=== PATIENT | male | born 1955 | race Caucasian/White ===

== ENCOUNTER 2018-12-03 08:13 | Inpatient (IN) | payer MEDICARE ==
[~2018-12-03] VITALS: Ht 190.5 cm; Wt 110.0 kg
[~2018-12-03 08:13] MED LIST: ESOM40CA PO; LACT10SO32 PO; MULT-342 PO; OXYC10TA47 PO; RIFA550T PO; TAMS0.4C32 PO
[2018-12-03] MEDS ORDERED: CefTRIAXone 2gm/D5W 50ml 50 ML IV ONE (08:20)
[2018-12-03] MEDS ORDERED: normal saline 1000ml 1,000 ML IV ONE (08:20)
[2018-12-03] MEDS ORDERED: piperacillin/tazo 3.375gm/50ml 50 ML IV ONE (08:20)
[2018-12-03] MEDS ORDERED: morphine 4 MG/ML inj SYRINge IV ONE (08:30)
[2018-12-03] MEDS ORDERED: ondansetron 4mg rapidly disintigrating tab PO ONE (08:30)
[2018-12-03 09:01] LABS: BASOPHILS % (AUTO) 0.4 % (0-1); EOSINOPHILS # (AUTO) 0.4 X10'3 (0-0.9); HEMATOCRIT 38.5 % (42.0-52.0); HEMOGLOBIN 12.7 g/dl (14.0-17.9); LYMPHOCYTES # (AUTO) 0.9 X10'3 (1.1-4.8); LYMPHOCYTES % (AUTO) 14.6 % (21-51); MEAN CORPUSCULAR HEMOGLOBIN 26.9 PG (27.0-31.0); MEAN CORPUSCULAR HGB CONC 32.9 g/dL (33.0-36.5); MEAN CORPUSCULAR VOLUME 81.7 FL (78-98); MEAN PLATELET VOLUME 7.9 FL (7.4-10.4); MONOCYTES # (AUTO) 0.3 X10'3 (0-0.9); MONOCYTES % (AUTO) 5.7 % (2-12); NEUTROPHILS # (AUTO) 4.5 X10'3 (1.8-7.7); NEUTROPHILS % (AUTO) 73.3 % (42-75); PLATELET COUNT 230 X10'3 (140-440); RED BLOOD COUNT 4.71 X10'6 (4.70-6.10); RED CELL DISTRIBUTION WIDTH 17.6 % (11.5-14.5); WHITE BLOOD COUNT 6.1 X10'3 (4.5-11.0)
[2018-12-03 09:12] LABS: INR 1.1 INR; PARTIAL THROMBOPLASTIN TIME 33 SECONDS (22-32)
[2018-12-03 09:22] LABS: ALANINE AMINOTRANSFERASE 35 U/L (12-78); ALBUMIN/GLOBULIN RATIO 0.7 (1.1-1.5); ALKALINE PHOSPHATASE 96 IU/L (46-116); ANION GAP 7 (8-16); ASPARTATE AMINO TRANSFERASE 29 U/L (10-37); BILIRUBIN,TOTAL 0.3 MG/DL (0.1-1.0); BLOOD UREA NITROGEN 13 MG/DL (7-18); BUN/CREATININE RATIO 9.6 (5.4-32.0); CALCIUM 8.4 MG/DL (8.5-10.1); CHLORIDE 106 MMOL/L (99-107); CREATININE 1.36 MG/DL (0.60-1.10); GLUCOSE 146 MG/DL (70-104); MAGNESIUM 1.8 MG/DL (1.5-2.4); POTASSIUM 4.7 MMOL/L (3.5-5.1); SODIUM 138 MMOL/L (135-145); TOTAL CARBON DIOXIDE 25.1 MMOL/L (24-32); TOTAL PROTEIN 7.3 G/DL (6.4-8.2); eGFR 53 ML/MIN
[2018-12-03] MEDS ORDERED: HYDROmorphone inj. 0.5 MG/0.5 ML DISP.SYRIN IV ONE (09:45)
[2018-12-03] MEDS ORDERED: DOXYCYCLINE 100MG CAPSULE PO STA (10:06)
[2018-12-03] MEDS ORDERED: DOXY100C43 PO (10:09)
[2018-12-03] MEDS ORDERED: CEPH250T PO (10:09)
[2018-12-03] MEDS ORDERED: ondansetron/PF 4mg/2ml inj IV PRN (10:25)
[2018-12-03] MEDS ORDERED: acetaminophen 325mg tablet PO PRN (10:25)
[2018-12-03] MEDS ORDERED: mag hydrox/Alum hydrox/simeth 30ml oral suspension PO PRN (10:25)
[2018-12-03] MEDS ORDERED: HYDROcodone/acetaminophen 5mg/325mg tablet PO PRN (10:25)
[2018-12-03] MEDS ORDERED: magnesium hydroxide 30ml (MOM) UD suspension PO PRN (10:25)
[2018-12-03] MEDS: normal saline 1000ml 1,000 ML IV SCH ×2 (10:49→14:55)
[2018-12-03] MEDS: HYDROmorphone inj. 0.5 MG/0.5 ML DISP.SYRIN IV PRN ×4 (11:16→23:05)
[2018-12-03 11:24] LABS: CLARITY,URINE CLEAR (Clear); COLOR,URINE YELLOW (Yellow); GLUCOSE, URINE NEGATIVE (Neg); KETONES,URINE NEGATIVE (Neg); LEUKOCYTE ESTERASE ,URINE NEGATIVE (Neg); NITRITES, URINE NEGATIVE (Neg); OCCULT BLOOD,URINE NEGATIVE (Neg); PH,URINE 5.5 (4.8-8.0); PROTEIN,URINE NEGATIVE (Neg)
[2018-12-03 11:32] LABS: UA COLLECTION TYPE STRAIGHT CATH
[2018-12-03] MEDS ORDERED: LORA0.5T PO (11:48)
[2018-12-03] MEDS ORDERED: OXYC30TA85 PO (11:48)
[2018-12-03] MEDS ORDERED: FLUO15OI2 TP (11:52)
[2018-12-03] MEDS ORDERED: ZALE10CA PO (11:52)
[2018-12-03] MEDS ORDERED: FURO-150 PO (11:53)
[2018-12-03] MEDS ORDERED: HYDR-3686 PO (11:54)
--- NOTE | 2018-12-03 13:26 | NUR ---
I have received report from CAMILO Garza and had the opportunity to ask questions and assume patient care.
[2018-12-03 13:45] VITALS: BP 141/75
[2018-12-03] MEDS ORDERED: HYDROmorphone inj. 0.5 MG/0.5 ML DISP.SYRIN IV PRN (14:15)
[2018-12-03] MEDS: mineral oil/petrolatum, white cream 113gm jar TP SCH (14:54)
[2018-12-03] MEDS ORDERED: OXYCODONE HCL PO SCH (16:00)
[2018-12-03] MEDS: hydrOXYzine 25 MG tablet PO SCH ×2 (17:04→23:17)
[2018-12-03] MEDS: OXYcodone (OXYCONTIN) Ext Release 15 MG TAB.SR.12H PO SCH ×2 (17:05→23:17)
--- NOTE | 2018-12-03 18:21 | NUR ---
Problems reprioritized. Patient report given, questions answered & plan of care reviewed with CAMILO Alves.
[2018-12-03 18:40] VITALS: BP 120/76
[2018-12-03] MEDS ORDERED: FLUOCINOLONE ACETONIDE TP SCH (20:00)
[2018-12-03] MEDS: fluocinonide 0.05% 15gm ointment TP SCH (20:00)
[2018-12-03] MEDS: lactulose 20gm/30ml cup PO SCH (20:00)
[2018-12-03] MEDS: heparin, porcine 5000 units/ml vial SQ SCH (20:00)
[2018-12-03] MEDS: LORazepam 0.5 MG tablet PO SCH (20:51)
[2018-12-03] MEDS: zolpidem 5mg tablet PO SCH (20:52)
[2018-12-03] MEDS: tamsulosin 0.4mg capsule PO SCH (20:52)
[2018-12-03] MEDS: metroNIDAZOLE 500mg tablet PO SCH (20:52)
[2018-12-03] MEDS ORDERED: ZALEPLON PO SCH (21:00)
[2018-12-04] VITALS: BP 105/55
[2018-12-04 05:38] LABS: BASOPHILS % (AUTO) 0.5 % (0-1); EOSINOPHILS # (AUTO) 0.3 X10'3 (0-0.9); EOSINOPHILS % (AUTO) 7.5 % (0-6); HEMATOCRIT 31.7 % (42.0-52.0); HEMOGLOBIN 10.7 g/dl (14.0-17.9); LYMPHOCYTES # (AUTO) 0.8 X10'3 (1.1-4.8); LYMPHOCYTES % (AUTO) 21.6 % (21-51); MEAN CORPUSCULAR HEMOGLOBIN 27.5 PG (27.0-31.0); MEAN CORPUSCULAR HGB CONC 33.9 g/dL (33.0-36.5); MEAN CORPUSCULAR VOLUME 81.2 FL (78-98); MEAN PLATELET VOLUME 7.8 FL (7.4-10.4); MONOCYTES # (AUTO) 0.2 X10'3 (0-0.9); NEUTROPHILS # (AUTO) 2.4 X10'3 (1.8-7.7); NEUTROPHILS % (AUTO) 64.4 % (42-75); PLATELET COUNT 191 X10'3 (140-440); RED BLOOD COUNT 3.91 X10'6 (4.70-6.10); RED CELL DISTRIBUTION WIDTH 17.7 % (11.5-14.5); WHITE BLOOD COUNT 3.8 X10'3 (4.5-11.0)
[2018-12-04 05:41] LABS: ALBUMIN 2.5 G/DL (3.4-5.0); ANION GAP 7 (8-16); BLOOD UREA NITROGEN 11 MG/DL (7-18); BUN/CREATININE RATIO 9.3 (5.4-32.0); CALCIUM 7.8 MG/DL (8.5-10.1); CHLORIDE 107 MMOL/L (99-107); CREATININE 1.18 MG/DL (0.60-1.10); GLUCOSE 114 MG/DL (70-104); POTASSIUM 4.4 MMOL/L (3.5-5.1); SODIUM 138 MMOL/L (135-145); TOTAL CARBON DIOXIDE 24.3 MMOL/L (24-32); eGFR 63 ML/MIN
--- NOTE | 2018-12-04 06:36 | NUR ---
Problems reprioritized. Patient report given, questions answered & plan of care reviewed with MELVIN. Addendum: 12/04/18 at 0636 by Dameon Galan RN Amended: Links added.
[2018-12-04 07:00] VITALS: BP 93/48
--- NOTE | 2018-12-04 07:00 | NUR ---
Patient in room [facility]. I have received report from Long and had the opportunity to ask questions and assume patient care. Addendum: 12/04/18 at 1539 by Rocio Nichols RN Amended: Links added.
[2018-12-04] MEDS: HYDROmorphone inj. 0.5 MG/0.5 ML DISP.SYRIN IV PRN ×7 (07:15→22:07)
[2018-12-04] MEDS ORDERED: non-formulary drug (Multivitamins (Multi-Day Vitamin) 1 EACH) PO SCH (08:00)
[2018-12-04] MEDS: lactulose 20gm/30ml cup PO SCH (08:00)
[2018-12-04] MEDS: furosemide 40mg tablet PO SCH (08:00)
[2018-12-04] MEDS: hydrOXYzine 25 MG tablet PO SCH ×2 (08:29→14:33)
[2018-12-04] MEDS: LORazepam 0.5 MG tablet PO SCH ×3 (08:29→20:26)
[2018-12-04] MEDS: metroNIDAZOLE 500mg tablet PO SCH ×3 (08:29→20:26)
[2018-12-04] MEDS: multivitamins, therapeutics tablet PO SCH (08:29)
[2018-12-04] MEDS: OXYcodone (OXYCONTIN) Ext Release 15 MG TAB.SR.12H PO SCH ×2 (08:29→14:34)
[2018-12-04] MEDS: heparin, porcine 5000 units/ml vial SQ SCH ×2 (08:34→20:35)
[2018-12-04] MEDS: normal saline 1000ml 1,000 ML IV SCH ×3 (10:21→22:08)
[2018-12-04] MEDS: mineral oil/petrolatum, white cream 113gm jar TP SCH (10:29)
[2018-12-04] MEDS: fluocinonide 0.05% 15gm ointment TP SCH ×2 (10:29→20:45)
[2018-12-04 11:00] VITALS: BP 127/73
[2018-12-04] MEDS ORDERED: furosemide 40mg/4ml inj IV ONE (13:40)
--- NOTE | 2018-12-04 18:21 | NUR ---
Problems reprioritized. Patient report given, questions answered & plan of care reviewed with Joyce.
--- NOTE | 2018-12-04 18:22 | NUR ---
Problems reprioritized. Patient report given, questions answered & plan of care reviewed with Zahra. Addendum: 12/04/18 at 1822 by Rocio Nichols RN Amended: Links added.
--- NOTE | 2018-12-04 18:30 | NUR ---
Patient in room [facility]. I have received report from CAMILO Chan and had the opportunity to ask questions and assume patient care. Addendum: 12/04/18 at 2337 by Beto Beck RN Amended: Links added.
[2018-12-04 19:30] VITALS: BP 109/72
[2018-12-04] MEDS: lactobacillus rhamnosus 10,000 MMU CELLS/CAPSULE PO SCH (20:25)
[2018-12-04] MEDS: tamsulosin 0.4mg capsule PO SCH (20:25)
[2018-12-04] MEDS: zolpidem 5mg tablet PO SCH (20:26)
[2018-12-04] MEDS ORDERED: VANCOMYCIN LEVEL IV ONE (22:30)
[2018-12-05] VITALS: BP 108/72
[2018-12-05] MEDS: OXYcodone (OXYCONTIN) Ext Release 15 MG TAB.SR.12H PO SCH ×3 (00:02→16:16)
[2018-12-05] MEDS: hydrOXYzine 25 MG tablet PO SCH ×3 (00:02→16:16)
[2018-12-05] MEDS: HYDROmorphone inj. 0.5 MG/0.5 ML DISP.SYRIN IV PRN ×12 (00:02→22:00)
[2018-12-05 05:38] LABS: BASOPHILS % (AUTO) 0.4 % (0-1); EOSINOPHILS # (AUTO) 0.3 X10'3 (0-0.9); EOSINOPHILS % (AUTO) 6.4 % (0-6); HEMATOCRIT 34.6 % (42.0-52.0); HEMOGLOBIN 11.5 g/dl (14.0-17.9); LYMPHOCYTES # (AUTO) 0.9 X10'3 (1.1-4.8); LYMPHOCYTES % (AUTO) 18.1 % (21-51); MEAN CORPUSCULAR HGB CONC 33.4 g/dL (33.0-36.5); MEAN PLATELET VOLUME 7.6 FL (7.4-10.4); MONOCYTES # (AUTO) 0.4 X10'3 (0-0.9); MONOCYTES % (AUTO) 7.4 % (2-12); NEUTROPHILS # (AUTO) 3.5 X10'3 (1.8-7.7); NEUTROPHILS % (AUTO) 67.7 % (42-75); PLATELET COUNT 190 X10'3 (140-440); RED BLOOD COUNT 4.27 X10'6 (4.70-6.10); RED CELL DISTRIBUTION WIDTH 17.5 % (11.5-14.5); WHITE BLOOD COUNT 5.2 X10'3 (4.5-11.0)
[2018-12-05 05:47] LABS: ALBUMIN 2.7 G/DL (3.4-5.0); ANION GAP 10 (8-16); BLOOD UREA NITROGEN 11 MG/DL (7-18); BUN/CREATININE RATIO 9.5 (5.4-32.0); CALCIUM 8.6 MG/DL (8.5-10.1); CHLORIDE 107 MMOL/L (99-107); CREATININE 1.16 MG/DL (0.60-1.10); GLUCOSE 111 MG/DL (70-104); SODIUM 141 MMOL/L (135-145); TOTAL CARBON DIOXIDE 23.9 MMOL/L (24-32); eGFR 64 ML/MIN
--- NOTE | 2018-12-05 06:20 | NUR ---
Problems reprioritized. Patient report given, questions answered & plan of care reviewed with CAMILO Chan. Addendum: 12/05/18 at 0620 by Beto Beck RN Amended: Links added.
[2018-12-05 07:00] VITALS: BP 142/85
--- NOTE | 2018-12-05 07:00 | NUR ---
Patient in room [facility]. I have received report from Lucrecia and had the opportunity to ask questions and assume patient care. Addendum: 12/05/18 at 1349 by Rocio Nichols RN Amended: Links added.
[2018-12-05] MEDS: furosemide 40mg tablet PO SCH (08:00)
[2018-12-05] MEDS: normal saline 1000ml 1,000 ML IV SCH ×2 (08:11→20:08)
[2018-12-05] MEDS: multivitamins, therapeutics tablet PO SCH (08:11)
[2018-12-05] MEDS: lactobacillus rhamnosus 10,000 MMU CELLS/CAPSULE PO SCH ×2 (08:11→20:07)
[2018-12-05] MEDS: LORazepam 0.5 MG tablet PO SCH ×3 (08:11→21:14)
[2018-12-05] MEDS: metroNIDAZOLE 500mg tablet PO SCH ×3 (08:11→21:14)
[2018-12-05] MEDS: lactulose 20gm/30ml cup PO SCH (08:12)
[2018-12-05] MEDS: mineral oil/petrolatum, white cream 113gm jar TP SCH (08:13)
[2018-12-05] MEDS: fluocinonide 0.05% 15gm ointment TP SCH ×2 (08:13→20:07)
[2018-12-05] MEDS: heparin, porcine 5000 units/ml vial SQ SCH ×2 (08:13→20:07)
[2018-12-05] MEDS: vancomycin inj 1,250 MG in normal saline 250ml IV soln 250 ML IV SCH ×2 (11:19→23:15)
[2018-12-05 12:00] VITALS: BP 136/79
--- NOTE | 2018-12-05 18:39 | NUR ---
Problems reprioritized. Patient report given, questions answered & plan of care reviewed with Piedad. Addendum: 12/05/18 at 1839 by Rocio Nichols RN Amended: Links added.
--- NOTE | 2018-12-05 18:40 | NUR ---
Patient in room [facility]. I have received report from Rocio PAGE and had the opportunity to ask questions and assume patient care. Resting with at bedside, finishing dinner, will continue to monitor.
[2018-12-05 20:00] VITALS: BP 135/70
[2018-12-05] MEDS: zolpidem 5mg tablet PO SCH (21:00)
[2018-12-05] MEDS: tamsulosin 0.4mg capsule PO SCH (21:15)
[2018-12-06] VITALS: BP 116/71
[2018-12-06] MEDS: hydrOXYzine 25 MG tablet PO SCH ×3 (00:02→16:00)
[2018-12-06] MEDS: HYDROmorphone inj. 0.5 MG/0.5 ML DISP.SYRIN IV PRN ×7 (02:01→22:19)
--- NOTE | 2018-12-06 06:00 | NUR ---
at bedside, explains that the patient had emesis 35 minutes ago with projectile emesis. 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 Patient states no feeling and unablet o move toes, loosened dressing and patient has improved feeling and movement. Wrapped loosely.
[2018-12-06 06:17] LABS: BASOPHILS % (AUTO) 0.7 % (0-1); EOSINOPHILS # (AUTO) 0.2 X10'3 (0-0.9); HEMATOCRIT 35.9 % (42.0-52.0); HEMOGLOBIN 11.7 g/dl (14.0-17.9); LYMPHOCYTES # (AUTO) 0.8 X10'3 (1.1-4.8); LYMPHOCYTES % (AUTO) 13.5 % (21-51); MEAN CORPUSCULAR HEMOGLOBIN 26.8 PG (27.0-31.0); MEAN CORPUSCULAR HGB CONC 32.6 g/dL (33.0-36.5); MEAN CORPUSCULAR VOLUME 82.3 FL (78-98); MEAN PLATELET VOLUME 7.5 FL (7.4-10.4); MONOCYTES # (AUTO) 0.4 X10'3 (0-0.9); MONOCYTES % (AUTO) 6.8 % (2-12); NEUTROPHILS # (AUTO) 4.3 X10'3 (1.8-7.7); PLATELET COUNT 211 X10'3 (140-440); RED BLOOD COUNT 4.37 X10'6 (4.70-6.10); RED CELL DISTRIBUTION WIDTH 17.4 % (11.5-14.5); WHITE BLOOD COUNT 5.8 X10'3 (4.5-11.0)
[2018-12-06 06:42] LABS: ANION GAP 11 (8-16); BLOOD UREA NITROGEN 8 MG/DL (7-18); BUN/CREATININE RATIO 7.3 (5.4-32.0); CALCIUM 9.2 MG/DL (8.5-10.1); CHLORIDE 106 MMOL/L (99-107); GLUCOSE 124 MG/DL (70-104); POTASSIUM 4.1 MMOL/L (3.5-5.1); SODIUM 140 MMOL/L (135-145); TOTAL CARBON DIOXIDE 23.1 MMOL/L (24-32); eGFR 68 ML/MIN
--- NOTE | 2018-12-06 06:47 | NUR ---
Problems reprioritized. Patient report given, questions answered & plan of care reviewed with Maritza PAGE. at bedside, denies nausea and further vomiting, pulse palpable in dorsalis pedis.
[2018-12-06 07:35] VITALS: BP 141/86
[2018-12-06] MEDS: lactobacillus rhamnosus 10,000 MMU CELLS/CAPSULE PO SCH ×2 (07:44→19:33)
[2018-12-06] MEDS: furosemide 40mg tablet PO SCH (07:44)
[2018-12-06] MEDS: OXYcodone (OXYCONTIN) Ext Release 15 MG TAB.SR.12H PO SCH ×3 (07:45→16:00)
[2018-12-06] MEDS: multivitamins, therapeutics tablet PO SCH (07:45)
[2018-12-06] MEDS: LORazepam 0.5 MG tablet PO SCH ×3 (07:46→21:26)
[2018-12-06] MEDS: metroNIDAZOLE 500mg tablet PO SCH ×3 (07:46→21:26)
[2018-12-06] MEDS: heparin, porcine 5000 units/ml vial SQ SCH ×2 (07:46→19:34)
[2018-12-06] MEDS: lactulose 20gm/30ml cup PO SCH (07:51)
[2018-12-06] MEDS: normal saline 1000ml 1,000 ML IV SCH ×3 (08:42→21:06)
[2018-12-06] MEDS: fluocinonide 0.05% 15gm ointment TP SCH ×2 (10:37→19:17)
[2018-12-06] MEDS: mineral oil/petrolatum, white cream 113gm jar TP SCH (10:38)
[2018-12-06 11:00] VITALS: BP 131/78
[2018-12-06] MEDS: vancomycin inj 1,250 MG in normal saline 250ml IV soln 250 ML IV SCH ×2 (11:12→23:00)
[2018-12-06] MEDS: oxyCODONE IR 5mg (immed. release) tablet PO PRN ×2 (11:53→18:06)
--- NOTE | 2018-12-06 18:33 | NUR ---
Patient in room [facility]. I have received report from Maritza PAGE and had the opportunity to ask questions and assume patient care. Patient finishing dinner, will continue to monitor.
--- NOTE | 2018-12-06 18:42 | NUR ---
Problems reprioritized. Patient report given, questions answered & plan of care reviewed with Elicia PAGE.
[2018-12-06] MEDS: zolpidem 5mg tablet PO SCH (19:41)
[2018-12-06 20:00] VITALS: BP 145/88
[2018-12-06] MEDS: tamsulosin 0.4mg capsule PO SCH (21:26)
[2018-12-06] MEDS ORDERED: VANCOMYCIN LEVEL IV ONE (22:30)
[2018-12-06] MEDS ORDERED: ibuprofen tablet 400 MG TABLET PO ONE (23:30)
[2018-12-07] VITALS: BP 138/78
--- NOTE | 2018-12-07 | NUR ---
Patient stating inflammation in knee, requested anti-inflammatory. Discussed with Dr. Purcell who reviewed kidney and liver function and agreed to a one time dose of ibuprofen for left knee. Will continue to monitor.
[2018-12-07] MEDS: OXYcodone (OXYCONTIN) Ext Release 15 MG TAB.SR.12H PO SCH ×2 (00:06→08:31)
[2018-12-07] MEDS: hydrOXYzine 25 MG tablet PO SCH ×2 (00:07→08:33)
[2018-12-07] MEDS: HYDROmorphone inj. 0.5 MG/0.5 ML DISP.SYRIN IV PRN (03:17)
--- NOTE | 2018-12-07 03:36 | NUR ---
Offered oxycodone, patient states, "no, I'd rather have dilaudid if I could." will provide oxycodone alternating to assist in pain level. Educated patient that the Oxy IR will last longer and will help him prepare for home. States he really would like the "pain shot". Will continue to educate and monitor.
[2018-12-07] MEDS: oxyCODONE IR 5mg (immed. release) tablet PO PRN (05:24)
[2018-12-07 06:09] LABS: BASOPHILS % (AUTO) 0.4 % (0-1); EOSINOPHILS # (AUTO) 0.3 X10'3 (0-0.9); EOSINOPHILS % (AUTO) 5.1 % (0-6); HEMOGLOBIN 11.8 g/dl (14.0-17.9); LYMPHOCYTES # (AUTO) 0.8 X10'3 (1.1-4.8); LYMPHOCYTES % (AUTO) 15.2 % (21-51); MEAN CORPUSCULAR HEMOGLOBIN 26.7 PG (27.0-31.0); MEAN CORPUSCULAR HGB CONC 32.7 g/dL (33.0-36.5); MEAN CORPUSCULAR VOLUME 81.8 FL (78-98); MEAN PLATELET VOLUME 7.5 FL (7.4-10.4); MONOCYTES # (AUTO) 0.4 X10'3 (0-0.9); MONOCYTES % (AUTO) 7.7 % (2-12); NEUTROPHILS # (AUTO) 3.7 X10'3 (1.8-7.7); NEUTROPHILS % (AUTO) 71.6 % (42-75); PLATELET COUNT 188 X10'3 (140-440); RED BLOOD COUNT 4.41 X10'6 (4.70-6.10); RED CELL DISTRIBUTION WIDTH 17.5 % (11.5-14.5); WHITE BLOOD COUNT 5.1 X10'3 (4.5-11.0)
[2018-12-07 06:17] LABS: CLARITY,URINE SLIGHTLY CLOUDY (Clear); COLOR,URINE YELLOW (Yellow); GLUCOSE, URINE NEGATIVE (Neg); KETONES,URINE TRACE mg/dl (Neg); LEUKOCYTE ESTERASE ,URINE NEGATIVE (Neg); OCCULT BLOOD,URINE NEGATIVE (Neg); PROTEIN,URINE TRACE mg/dl (Neg); UA COLLECTION TYPE CLN CATCH MIDSTREAM
[2018-12-07 06:19] LABS: NITRITES, URINE NEGATIVE (Neg)
[2018-12-07 06:35] LABS: MUCUS STRANDS FEW /LPF (Neg); SQUAMOUS EPITHELIAL CELL,UR MODERATE /LPF (FEW)
[2018-12-07 06:38] LABS: AMORPHOUS URATES 1+; CAL OXALATE CRYSTALS FEW /HPF (NEGATIVE)
[2018-12-07 06:39] LABS: BACTERIA,URINE 1+ /HPF (Neg)
[2018-12-07 06:40] LABS: RBC,URINE 0-2 /HPF (0-2); WBC,URINE 0-4 /HPF (0-4)
--- NOTE | 2018-12-07 06:45 | NUR ---
Problems reprioritized. Patient report given, questions answered & plan of care reviewed with Cindy PAGE. Resting in bed, fidgeting with towels. at bedside.
[2018-12-07 06:50] LABS: ALBUMIN 2.8 G/DL (3.4-5.0); ANION GAP 7 (8-16); BLOOD UREA NITROGEN 9 MG/DL (7-18); CALCIUM 8.8 MG/DL (8.5-10.1); CHLORIDE 107 MMOL/L (99-107); CREATININE 1.13 MG/DL (0.60-1.10); GLUCOSE 145 MG/DL (70-104); POTASSIUM 3.5 MMOL/L (3.5-5.1); SODIUM 141 MMOL/L (135-145); TOTAL CARBON DIOXIDE 27.3 MMOL/L (24-32); eGFR 66 ML/MIN
[2018-12-07 08:00] VITALS: BP 139/94
[2018-12-07] MEDS: lactulose 20gm/30ml cup PO SCH (08:00)
[2018-12-07] MEDS: multivitamins, therapeutics tablet PO SCH (08:31)
[2018-12-07] MEDS: heparin, porcine 5000 units/ml vial SQ SCH (08:32)
[2018-12-07] MEDS: lactobacillus rhamnosus 10,000 MMU CELLS/CAPSULE PO SCH (08:33)
[2018-12-07] MEDS: LORazepam 0.5 MG tablet PO SCH ×2 (08:33→14:05)
[2018-12-07] MEDS: fluocinonide 0.05% 15gm ointment TP SCH (08:33)
[2018-12-07] MEDS: furosemide 40mg tablet PO SCH (08:33)
[2018-12-07] MEDS: metroNIDAZOLE 500mg tablet PO SCH ×2 (08:33→14:04)
[2018-12-07] MEDS: mineral oil/petrolatum, white cream 113gm jar TP SCH (08:36)
[2018-12-07 11:00] VITALS: BP 118/64
[2018-12-07] MEDS: vancomycin inj 1,250 MG in normal saline 250ml IV soln 250 ML IV SCH (11:55)
[2018-12-07] MEDS ORDERED: FURO40TA4 PO (14:12)
[2018-12-07] MEDS ORDERED: CLIN-5 PO (14:18)
--- NOTE | 2018-12-07 15:59 | NUR ---
PT DISCHARGED AT 1530 WITH ALL BELONGINGS FROM ROOM. IV TAKEN OUT, NO TELE. MEDS CALLED INTO [facility]. PT HAS WALKER AT HOME TO USE. PT EDUCATED ON COMING BACK TO ER IF SYMPTOMS WORSTED OR DON'T GET BETTER. PT WANTING TO GO HOME, HOME TO HELP. PT WILL F/U WITH DR VELARDE OUT PT
== END 2018-12-07 15:30 | disposition home or self-care (01) | DRG 603 ==
LOC: ER 08:14 → SUR 3N 13:40 → CMPBEDREQ 19:41
PROVIDERS: ADMIT Family Medicine; ATTEND Internal Medicine
DX: L03.115 Cellulitis of right lower limb (principal); L03.116 Cellulitis of left lower limb; G89.4 Chronic pain syndrome; G62.9 Polyneuropathy, unspecified; K73.9 Chronic hepatitis, unspecified; T78.49XA Other allergy, initial encounter; T49.3X5A Adverse effect of emollients, demulcents and protectants, initial encounter; X58.XXXA Exposure to other specified factors, initial encounter; Z98.84 Bariatric surgery status; Z88.8 Allergy status to other drugs, medicaments and biological substances; Y92.89 Other specified places as the place of occurrence of the external cause
CPT/HCPCS: 36415; 80048; 80053; 80202; 81001; 81003; 82140; 83605; 83735; 84145; 85025; 85610; 85730; 87040; 87070; 93971; 96365; 96366; 96368; 96375; 97116; 97161; 97530; 99285; G0378; J0696; J1170; J1644; J1940; J2270; J2543; J3370; J3490; J7030; Q0177

== ENCOUNTER 2020-03-25 09:43 | Outpatient (CLI) | payer MEDICARE ==
[2020-03-25] VITALS (21 sets, daily range): BP systolic 98–139; BP diastolic 39–83
[~2020-03-25 09:43] MED LIST changes: -ESOM40CA PO; +ESOM40CA54 PO; +FURO40TA4 PO; +HYDR-3686 PO; +LORA0.5T PO; +NYST15OI14 TP; -OXYC10TA47 PO; +OXYC30TA85 PO; -RIFA550T PO; +WOOL454C TP; +ZALE10CA PO
== END 2020-03-25 23:59 | disposition home or self-care (01) ==
LOC: CARD DIAG 09:43
PROVIDERS: ATTEND Internal Medicine Cardiovascular Disease
DX: R55 Syncope and collapse (principal)
CPT/HCPCS: 93660

== ENCOUNTER 2020-12-20 07:17 | Emergency (ER) | payer MEDICARE ==
[~2020-12-20] VITALS: Ht 172.7 cm; Wt 111.7 kg
[2020-12-20 07:21] VITALS: BP 125/74
== END 2020-12-20 10:28 | disposition home or self-care (01) ==
LOC: ER 07:17
DX: S60.221A Contusion of right hand, initial encounter (principal); S50.01XA Contusion of right elbow, initial encounter; G40.909 Epilepsy, unspecified, not intractable, without status epilepticus; G89.29 Other chronic pain; Z72.89 Other problems related to lifestyle; Z98.84 Bariatric surgery status; Z98.890 Other specified postprocedural states; Z79.899 Other long term (current) drug therapy; Z88.8 Allergy status to other drugs, medicaments and biological substances; W01.0XXA Fall on same level from slipping, tripping and stumbling without subsequent striking against object, initial encounter; Z91.81 History of falling; Y93.01 Activity, walking, marching and hiking; Y92.89 Other specified places as the place of occurrence of the external cause; Y99.8 Other external cause status
CPT/HCPCS: 29105; 73080; 73110; 99284

== ENCOUNTER 2021-10-27 09:50 | Outpatient (CLI) | payer MEDICARE ==
[2021-10-27 10:58] LABS: BASOPHILS % (AUTO) 0.7 % (0-1); EOSINOPHILS # (AUTO) 0.2 X10'3 (0-0.9); EOSINOPHILS % (AUTO) 5.2 % (0-6); HEMATOCRIT 35.6 % (42.0-52.0); HEMOGLOBIN 11.6 g/dl (14.0-17.9); LYMPHOCYTES # (AUTO) 1.1 X10'3 (1.1-4.8); MEAN CORPUSCULAR HEMOGLOBIN 25.6 PG (27.0-31.0); MEAN CORPUSCULAR HGB CONC 32.7 g/dL (33.0-36.5); MEAN CORPUSCULAR VOLUME 78.1 FL (78-98); MEAN PLATELET VOLUME 7.4 FL (7.4-10.4); MONOCYTES # (AUTO) 0.5 X10'3 (0-0.9); MONOCYTES % (AUTO) 12.5 % (2-12); NEUTROPHILS # (AUTO) 2.4 X10'3 (1.8-7.7); NEUTROPHILS % (AUTO) 56.6 % (42-75); PLATELET COUNT 158 X10'3 (140-440); RED BLOOD COUNT 4.56 X10'6 (4.70-6.10); RED CELL DISTRIBUTION WIDTH 18.4 % (11.5-14.5); WHITE BLOOD COUNT 4.2 X10'3 (4.5-11.0)
[2021-10-27 11:03] LABS: CLARITY,URINE CLEAR (Clear); COLOR,URINE YELLOW (Yellow); GLUCOSE, URINE NEGATIVE (Neg); KETONES,URINE NEGATIVE (Neg); LEUKOCYTE ESTERASE ,URINE NEGATIVE (Neg); NITRITES, URINE NEGATIVE (Neg); OCCULT BLOOD,URINE NEGATIVE (Neg); PROTEIN,URINE NEGATIVE (Neg)
[2021-10-27 11:04] LABS: UA COLLECTION TYPE NON-SPECIFIED
[2021-10-27 12:20] LABS: ALANINE AMINOTRANSFERASE 62 U/L (12-78); ALBUMIN 3.9 G/DL (3.4-5.0); ALBUMIN/GLOBULIN RATIO 0.9 (1.1-1.5); ALKALINE PHOSPHATASE 100 IU/L (46-116); ANION GAP 14 (8-16); ASPARTATE AMINO TRANSFERASE 60 U/L (10-37); BILIRUBIN,TOTAL 0.3 MG/DL (0.1-1.0); BLOOD UREA NITROGEN 12 MG/DL (7-18); BUN/CREATININE RATIO 12.1 (5.4-32.0); CALCIUM 9.2 MG/DL (8.5-10.1); CHLORIDE 101 MMOL/L (99-107); CREATININE 0.99 MG/DL (0.60-1.10); GLUCOSE 107 MG/DL (70-104); POTASSIUM 4.2 MMOL/L (3.5-5.1); SODIUM 138 MMOL/L (135-145); TOTAL CARBON DIOXIDE 22.6 MMOL/L (24-32); TOTAL PROTEIN 8.2 G/DL (6.4-8.2); eGFR 76 ML/MIN
== END 2021-10-27 23:59 | disposition home or self-care (01) ==
LOC: 64 CT 09:50
PROVIDERS: ATTEND Family Medicine
DX: I67.2 Cerebral atherosclerosis (principal); R41.0 Disorientation, unspecified; W19.XXXA Unspecified fall, initial encounter; Y93.89 Activity, other specified; Y92.89 Other specified places as the place of occurrence of the external cause; Y99.8 Other external cause status
CPT/HCPCS: 36415; 70450; 80053; 81003; 82140; 85025; 85610; 85651

== ENCOUNTER 2021-11-04 08:44 | Outpatient (CLI) | payer MEDICARE | END 2021-11-04 23:59 | disposition home or self-care (01) | LOC: RAD 08:44 | PROVIDERS: ATTEND Family Medicine | DX: R41.0 Disorientation, unspecified (principal) | CPT/HCPCS: 70551 ==